=== PATIENT | male | born 1970 | race Caucasian/White ===

== ENCOUNTER 2021-04-10 03:13 | Emergency (ER) | payer BC ==
[2021-04-10] MEDS ORDERED: cloNIDine 0.1 MG Tab PO ONE (03:39)
[2021-04-10] MEDS ORDERED: LORazepam 1 MG Tab PO ONE (03:39)
== END 2021-04-10 04:45 | disposition home or self-care (01) ==
LOC: FB.ED 03:13
DX: F41.0 Panic disorder [episodic paroxysmal anxiety] (principal); Z88.0 Allergy status to penicillin
CPT/HCPCS: 99283; A9270

== ENCOUNTER 2023-11-27 17:15 | Emergency (ER) | payer BC, OTHER | END 2023-11-27 19:15 | disposition home or self-care (01) | LOC: FB.ED 17:15 | DX: S61.205A Unspecified open wound of left ring finger without damage to nail, initial encounter (principal); I10 Essential (primary) hypertension; Z79.899 Other long term (current) drug therapy; Z88.0 Allergy status to penicillin; X58.XXXA Exposure to other specified factors, initial encounter | CPT/HCPCS: 73140-F3; 99283 ==